=== PATIENT | male | born 1950 | race Caucasian/White ===

== ENCOUNTER 2019-06-07 11:50 | Emergency (ER) | payer OTHER, MEDICAID ==
[2019-06-07 11:58] VITALS: Ht 162.6 cm
[2019-06-07 13:00] LABS: BASOPHIL % 0.2 % (0-2); PLATELET COUNT 257 x10^3mcL (130-400)
[2019-06-07 13:21] VITALS: BP 154/84
[2019-06-07 13:38] LABS: CALCIUM 8.7 mg/dL (8.5-10.1); CARBON DIOXIDE 26.5 mmol/L (21-32); CHLORIDE SERUM 104 mmol/L (98-107); CREATININE SERUM 0.8 mg/dL (0.7-1.3); GFR1 > 60 mL/min; GLUCOSE SERUM 97 mg/dL (74-106); POTASSIUM SERUM 3.7 mmol/L (3.5-5.1); SODIUM SERUM 140 mmol/L (136-145)
[2019-06-07 13:42] LABS: ALBUMIN 3.9 g/dL (3.4-5.0); ALKALINE PHOSPHATASE 82 U/L (46-116); ALT/SGPT 272 U/L (16-63); AST/SGOT 117 U/L (15-37); BILIRUBIN TOTAL 0.6 mg/dL (0.20-1.00); LIPASE 132 IU/L (73-393); TOTAL PROTEIN, SERUM 7.7 g/dL (6.4-8.2); TRIGLYCERIDES 186 mg/dL (<150)
[2019-06-07 13:45] LABS: CHOLESTEROL 231 mg/dL (<200); CHOLESTEROL/HDL RATIO 7.5; HDL CHOLESTEROL 31 mg/dL (40-60)
[2019-06-07 14:21] LABS: FREE T4 1.1 ng/dL (0.76-1.46); FREE THYROXINE INDEX 3.3 ug/dL (1.4-4.5); T4(THYROXINE) 9.9 ug/dL (4.7-13.3)
[2019-06-07 14:33] LABS: T3 TOTAL 1.57 ng/mL
== END 2019-06-07 13:21 | disposition short-term general hospital (02) ==
LOC: ED 11:50
PROVIDERS: Specialist
DX: I21.9 Acute myocardial infarction, unspecified (principal); F17.210 Nicotine dependence, cigarettes, uncomplicated; I10 Essential (primary) hypertension
CPT/HCPCS: 83880; 84439; 99406; J7030; Q0092